=== PATIENT | female | born 1970 | race Caucasian/White ===

== ENCOUNTER → 2017-05-18 15:45 | Outpatient (CLI) | payer OTHER, SELFPAY | PROVIDERS: Family Provider Student in an Organized Health Care Education/Training Program; PCP Student in an Organized Health Care Education/Training Program; Visit Provider Specialist | DX: L50.0 Allergic urticaria (principal); Z91.038 Other insect allergy status | CPT/HCPCS: 36415; 83520 ==

== ENCOUNTER → 2019-01-21 14:36 | Outpatient (CLI) | payer OTHER, SELFPAY ==
[2019-01-21 08:18] VITALS: BMI 29.5
[2019-01-25 08:51] LABS: HPV APTIMA, High Risk Negative (Negative)
== END ==
PROVIDERS: Family Provider Student in an Organized Health Care Education/Training Program; Visit Provider Nurse Practitioner Women's Health
DX: Z12.4 Encounter for screening for malignant neoplasm of cervix (principal)
CPT/HCPCS: 87624; 88175; G0145

== ENCOUNTER 2020-01-21 08:30 | Outpatient (RCR) | payer OTHER, SELFPAY ==
[2019-01-21 08:18] VITALS: BMI 29.5
== END 2020-01-27 23:59 ==
LOC: NS 08:30
PROVIDERS: Visit Provider Nurse Practitioner Family
DX: Z71.3 Dietary counseling and surveillance (principal); E66.3 Overweight; E78.2 Mixed hyperlipidemia
CPT/HCPCS: 97802; 97803

== ENCOUNTER 2020-02-17 15:30 | Outpatient (RCR) | payer OTHER, SELFPAY ==
[2019-01-21 08:18] VITALS: BMI 29.5
== END 2020-02-27 23:59 ==
LOC: NS 15:30
PROVIDERS: Visit Provider Nurse Practitioner Family
DX: Z71.3 Dietary counseling and surveillance (principal); E66.3 Overweight; E78.2 Mixed hyperlipidemia
CPT/HCPCS: 97803

== ENCOUNTER 2020-03-23 16:29 | Outpatient (RCR) | payer OTHER, SELFPAY ==
[2019-01-21 08:18] VITALS: BMI 29.5
== END 2020-03-29 23:59 ==
LOC: NS 16:29
PROVIDERS: Visit Provider Nurse Practitioner Family
DX: Z71.3 Dietary counseling and surveillance (principal); E66.3 Overweight; E78.2 Mixed hyperlipidemia
CPT/HCPCS: 97803

== ENCOUNTER 2020-04-06 16:08 | Outpatient (RCR) | payer OTHER, SELFPAY ==
[2019-01-21 08:18] VITALS: BMI 29.5
== END 2020-04-26 23:59 ==
LOC: NS 16:08
PROVIDERS: Visit Provider Nurse Practitioner Family
DX: Z71.3 Dietary counseling and surveillance (principal); E66.3 Overweight; E78.2 Mixed hyperlipidemia
CPT/HCPCS: 97803

== ENCOUNTER 2020-05-11 15:59 | Outpatient (RCR) | payer OTHER, SELFPAY ==
[2019-01-21 08:18] VITALS: BMI 29.5
== END 2020-05-27 23:59 ==
LOC: NS 15:59
PROVIDERS: Visit Provider Nurse Practitioner Family
DX: Z71.3 Dietary counseling and surveillance (principal); E66.3 Overweight; E78.2 Mixed hyperlipidemia
CPT/HCPCS: 97803

== ENCOUNTER 2020-06-08 15:49 | Outpatient (RCR) | payer OTHER, SELFPAY ==
[2019-01-21 08:18] VITALS: BMI 29.5
== END 2020-06-26 23:59 ==
LOC: NS 15:49
PROVIDERS: Visit Provider Nurse Practitioner Family
DX: Z71.3 Dietary counseling and surveillance (principal); E66.3 Overweight; E78.2 Mixed hyperlipidemia; Z68.28 Body mass index [BMI] 28.0-28.9, adult
CPT/HCPCS: 97803

== ENCOUNTER → 2020-06-18 15:59 | Outpatient (CLI) | payer OTHER, SELFPAY ==
[2019-01-21 08:18] VITALS: BMI 29.5
== END ==
PROVIDERS: PCP Student in an Organized Health Care Education/Training Program; Referring Provider Specialist; Visit Provider Specialist
DX: J30.9 Allergic rhinitis, unspecified (principal); J45.50 Severe persistent asthma, uncomplicated; R06.00 Dyspnea, unspecified; J32.9 Chronic sinusitis, unspecified; L50.1 Idiopathic urticaria; T78.09XD Anaphylactic reaction due to other food products, subsequent encounter; E55.9 Vitamin D deficiency, unspecified; E07.9 Disorder of thyroid, unspecified; Z91.038 Other insect allergy status
CPT/HCPCS: 36415; 83520

== ENCOUNTER 2020-07-06 15:29 | Outpatient (RCR) | payer OTHER, SELFPAY ==
[2019-01-21 08:18] VITALS: BMI 29.5
== END 2020-07-06 23:59 | disposition home or self-care (01) ==
LOC: NS 15:29
PROVIDERS: PCP Student in an Organized Health Care Education/Training Program; Visit Provider Nurse Practitioner Family
DX: Z71.3 Dietary counseling and surveillance (principal); E66.3 Overweight; Z68.28 Body mass index [BMI] 28.0-28.9, adult; E78.2 Mixed hyperlipidemia
CPT/HCPCS: 97803

== ENCOUNTER 2021-05-25 13:37 | Outpatient (CLI) | payer OTHER, SELFPAY ==
--- NOTE | 2021-05-25 13:50 | RAD_ITS ---
STUDY: BARIUM ENEMA. REASON FOR EXAM: Female, 50 years old. SCREENING FOR COLON CANCER FLUOROSCOPY TIME (if supplied): ( 1 minute ) minutes/seconds. 10 images were obtained. TECHNIQUE: A beef ribber film was obtained. Following this, barium was introduced retrograde through the rectum. The entire colon was opacified. COMPARISON: None. FINDINGS: IUD device is seen within the pelvis. Phleboliths are seen in the left hemipelvis. Contrast was introduced retrograde into the rectum. The entire colon was opacified. No evidence of a antegrade or retrograde obstruction to the flow of contrast. No intraluminal filling defect is seen. No mass lesion is present. RAD/Barium Enema No Air Cont IMPRESSION: Unremarkable examination. Electronically Signed: Kevin Paniagua MD at 14:41 EDT ,
== END 2021-05-25 23:59 | disposition home or self-care (01) ==
LOC: RAD 13:38
PROVIDERS: PCP Student in an Organized Health Care Education/Training Program; Referring Provider Surgery; Visit Provider Surgery
DX: Z12.11 Encounter for screening for malignant neoplasm of colon (principal)
CPT/HCPCS: 74270

== ENCOUNTER → 2021-12-22 | Outpatient (CLI) | payer OTHER, SELFPAY ==
--- NOTE | 2021-12-22 07:45 | BI_ITS ---
MAMMOGRAPHY - BILATERAL SCREENING REASON FOR EXAM: Female, 51 years old. Routine annual screening examination. PERTINENT HISTORY: Non-contributory. TECHNIQUE: Digital bilateral breast lincoln (3D mammographic acquisition) in the CC and MLO projections. 2-D mediolateral oblique (MLO) and craniocaudad (CC) views of both breasts were obtained. CAD: Full Field Digital Mammography with Computer Added Detection was performed. COMPARISON: Comparison is made with prior outside examination dated 08/25/2016. FINDINGS: Breast Composition: The breasts are heterogeneously dense, which may obscure small masses. There are no dominant masses or suspicious calcifications. Small benign-appearing bilateral axillary lymph nodes. No other significant abnormalities are identified. There has been no significant change since the prior study. BI/SCRN MAMM (CAD)W/LINCOLN BILAT IMPRESSION: Stable bilateral screening mammogram. Yearly follow-up mammogram recommended. (A) ASSESSMENT CATEGORY: BIRADS Category 2: Benign. A letter regarding these results will be sent to the patient by the facility within 30 days. Approximately 10% of breast cancers are not detected by mammography. A normal mammogram should not delay biopsy of a clinically suspicious abnormality. [id number] Electronically Signed: Kevin Paniagua MD at 8:51 EDT ,
== END | disposition home or self-care (01) ==
LOC: OPBI 07:43
PROVIDERS: PCP Student in an Organized Health Care Education/Training Program; Visit Provider Obstetrics & Gynecology
DX: Z12.31 Encounter for screening mammogram for malignant neoplasm of breast (principal)
CPT/HCPCS: 77063; 77067

== ENCOUNTER → 2023-06-26 | Outpatient (CLI) | payer OTHER, SELFPAY ==
--- NOTE | 2023-06-26 10:45 | BI_ITS ---
MAMMOGRAPHY - BILATERAL SCREENING REASON FOR EXAM: Female, 52 years old. Routine annual screening examination. PERTINENT HISTORY: Non-contributory. TECHNIQUE: Digital bilateral breast lincoln (3D mammographic acquisition) in the CC and MLO projections. 2-D mediolateral oblique (MLO) and craniocaudad (CC) views of both breasts were obtained. CAD: Full Field Digital Mammography with Computer Added Detection was performed. COMPARISON: Comparison is made with prior study December 22, 2021. FINDINGS: Breast Composition: The breasts are heterogeneously dense, which may obscure small masses. There are no dominant masses or suspicious calcifications. No other significant abnormalities are identified. There has been no significant change since the prior study. BI/SCRN MAMM (CAD)W/LINCOLN BILAT IMPRESSION: Stable bilateral screening mammogram. Yearly follow-up mammogram recommended. (A) ASSESSMENT CATEGORY: BIRADS Category 1: Negative. A letter regarding these results will be sent to the patient by the facility within 30 days. Approximately 10% of breast cancers are not detected by mammography. A normal mammogram should not delay biopsy of a clinically suspicious abnormality. [id number] Electronically Signed: Kevin Paniagua MD at 12:12 EDT ,
== END | disposition home or self-care (01) ==
PROVIDERS: PCP Student in an Organized Health Care Education/Training Program; Referring Provider Obstetrics & Gynecology; Visit Provider Obstetrics & Gynecology
DX: Z12.31 Encounter for screening mammogram for malignant neoplasm of breast (principal)
CPT/HCPCS: 77063; 77067; 87624; 88175; G0145

== ENCOUNTER → 2024-02-12 | Outpatient (CLI) | payer OTHER, SELFPAY | END | disposition home or self-care (01) | PROVIDERS: PCP Student in an Organized Health Care Education/Training Program; Referring Provider Nurse Practitioner; Visit Provider Nurse Practitioner | DX: Z91.038 Other insect allergy status (principal) | CPT/HCPCS: 36415 ==